=== PATIENT | male | born 1950 | race Caucasian/White ===

== ENCOUNTER 2021-04-17 15:56 | Inpatient (IN) ==
[2021-04-17] MEDS ORDERED: SODIUM CHLORIDE 0.9% 500 ML IV STA (20:11)
[2021-04-17 21:01] LABS: Basophils % 0.2 % (0.0-0.8); Hematocrit 49.9 VOL% (42.0-52.0); Hemoglobin 16.7 GM/DL (14.0-18.0); Immature Granulocytes % 0.7 %; Immature Granulocytes Absolute 0.07 #; Lymphocytes # 1.4 10*3/uL (1.4-4.0); Mean Corpuscular HGB Conc 33.5 GM/DL (32-36); Mean Corpuscular Volume 87.9 FL (87-102); Mean Platelet Volume 12.5 FL (9.6-12.0); Monocytes % 6.8 % (1.7-12.7); Neutrophils % 78.3 % (38.7-73.9); Platelet Count 171 T/CUMM (130-400); Red Blood Count 5.68 MC/CUMM (3.8-5.5); Red Cell Distribution Width 13.2 % (9.3-17.3); White Blood Count 9.8 T/CUMM (4-12)
[2021-04-17 21:14] LABS: INR 1.1; PT Patient Result 11.9 SECS (10.5-12.0)
[2021-04-17 21:21] LABS: Albumin 4.1 G/DL (3.4-5.0); Calcium 9.2 MG/DL (8.5-10.1); Osmolality,Calculated 290.4 MOS/KG (273-304); Potassium 3.9 MMOL/L (3.5-5.1); Total Protein 8.2 G/DL (6.4-8.2)
[2021-04-17] MEDS ORDERED: BICILLIN LA 1,200,000 UNIT/2 ML SYRINGE IM STA (21:22)
[2021-04-17] MEDS ORDERED: cefTRIAXone 1,000 MG in SODIUM CHLORIDE 0.9% 100 ML IV STA (21:24)
[2021-04-17 23:10] LABS: Bilirubin,Urine Negative (Negative); Blood, Urine Negative (Negative); Glucose,Urine (UA) 50 mg/dL (Negative); Hyaline Casts,Urine 3 /LPF (0-3); Ketones,Urine 5 mg/dL (Negative); Mucus,Urine Occasional /LPF (Occasional); Nitrite,Urine Negative (Negative); Protein,Urine 100 MG/DL; Urine Appearance CLEAR (Clear); Urine Color Yellow (Yellow); Urine Specific Gravity 1.018 (1.001-1.035); Urine Urobilinogen < 2.0 EU/DL (0.2-1.0)
[2021-04-17] MEDS ORDERED: ONDANSETRON 4 MG/2 ML VIAL IV PRN (23:11)
[2021-04-17] MEDS ORDERED: DEXTROSE 50% 25 GM/50 ML SYRINGE IV PRN (23:11)
[2021-04-17] MEDS ORDERED: GLUCAGON 1 MG VIAL IM PRN (23:11)
[2021-04-17] MEDS ORDERED: DEXTROSE 50% 25 GM/50 ML VIAL IV PRN (23:11)
[2021-04-17 23:20] LABS: Barbiturates Screen,Urine Negative (Negative); Benzodiazepines Screen,Urine Negative (Negative); Cannabinoid Screen,Urine Negative (Negative); Opiate Screen,Urine Positive (Negative); Phencyclidine Screen,Urine Negative (Negative)
[2021-04-18 00:12] LABS: Ferritin 4933.4 ng/mL (26-388)
[2021-04-18 08:49] LABS: Basophils % 0.2 % (0.0-0.8); Hematocrit 49.2 VOL% (42.0-52.0); Hemoglobin 16.6 GM/DL (14.0-18.0); Immature Granulocytes % 0.7 %; Immature Granulocytes Absolute 0.07 #; Lymphocytes # 1.9 10*3/uL (1.4-4.0); Lymphocytes % 19.7 % (21.2-54.2); Mean Corpuscular HGB Conc 33.7 GM/DL (32-36); Mean Corpuscular Volume 86.9 FL (87-102); Mean Platelet Volume 11.8 FL (9.6-12.0); Monocytes % 7.3 % (1.7-12.7); Neutrophils % 72.1 % (38.7-73.9); Platelet Count 187 T/CUMM (130-400); Red Blood Count 5.66 MC/CUMM (3.8-5.5); Red Cell Distribution Width 13.2 % (9.3-17.3); White Blood Count 9.7 T/CUMM (4-12)
[2021-04-18] MEDS ORDERED: DEXAMETHASONE 4 MG/1 ML VIAL IV SCH (09:00)
[2021-04-18] MEDS ORDERED: PANTOPRAZOLE 40 MG TABLET PO SCH (09:00)
[2021-04-18 09:07] LABS: Albumin 3.7 G/DL (3.4-5.0); Bilirubin,Total 0.9 MG/DL (0.20-1.00); Calcium 9.3 MG/DL (8.5-10.1); Osmolality,Calculated 285.2 MOS/KG (273-304); Total Protein 7.8 G/DL (6.4-8.2)
[2021-04-18] MEDS ORDERED: PANTOPRAZOLE 40 MG VIAL IV ONE (11:01)
[2021-04-18] MEDS: INSULIN REGULAR 100 UNIT/ML SUBCUT SCH ×3 (11:04→16:47)
[2021-04-18] MEDS: ENOXAPARIN 40 MG/0.4 ML SYRINGE SUBCUT SCH (11:04)
[2021-04-18] MEDS: ZINC GLUCONATE 50 MG TABLET PO SCH (11:05)
[2021-04-18] MEDS: AZITHROMYCIN INJ 500 MG in SODIUM CHLORIDE 0.9% 250 ML IV SCH (11:05)
[2021-04-18] MEDS: ASCORBIC ACID 500 MG TABLET PO SCH ×2 (11:05→23:14)
[2021-04-18] MEDS: IVERMECTIN 3 MG TABLET PO SCH (11:05)
[2021-04-18] MEDS: methylPREDNISolone SOD SUC 40 MG/1 ML VIAL IV SCH ×2 (11:05→18:08)
[2021-04-18] MEDS: CHOLECALCIFEROL 1,000 UNIT TABLET PO SCH (11:05)
[2021-04-18] MEDS: PANTOPRAZOLE 40 MG VIAL IV SCH (11:18)
[2021-04-18] MEDS: SODIUM CHLORIDE 0.9% 1,000 ML IV SCH ×2 (11:18→15:33)
[2021-04-18] MEDS ORDERED: LORazepam 2 MG/1 ML VIAL ONE (13:39)
[2021-04-18] MEDS: LORazepam 2 MG/1 ML VIAL IV PRN (13:50)
[2021-04-18] MEDS ORDERED: ALBUTEROL/IPRATROPIUM 3 ML NEB RESP TX PRN (17:23)
[2021-04-18] MEDS: POTASSIUM CHLORIDE RIDER 10 MEQ/100 ML PREMIX IV PRN (18:15)
[2021-04-18] MEDS ORDERED: ALBUTEROL/IPRATROPIUM 3 ML NEB RESP TX SCH (19:00)
[2021-04-18] MEDS: cefTRIAXone 1,000 MG in SODIUM CHLORIDE 0.9% 100 ML IV SCH (21:55)
[2021-04-19] MEDS ORDERED: ALBUTEROL INHALER 18 GM INH SCH (01:00)
[2021-04-19] MEDS: POTASSIUM CHLORIDE RIDER 10 MEQ/100 ML PREMIX IV PRN ×4 (01:00→03:00)
[2021-04-19] MEDS: methylPREDNISolone SOD SUC 40 MG/1 ML VIAL IV SCH ×3 (03:25→18:16)
[2021-04-19] MEDS: INSULIN REGULAR 100 UNIT/ML SUBCUT SCH ×5 (03:47→21:06)
[2021-04-19] MEDS: SODIUM CHLORIDE 0.9% 1,000 ML IV SCH ×3 (03:48→20:10)
[2021-04-19] MEDS: LORazepam 2 MG/1 ML VIAL IV PRN ×2 (04:45→12:29)
[2021-04-19 06:12] LABS: Basophils % 0.2 % (0.0-0.8); Hematocrit 50.1 VOL% (42.0-52.0); Hemoglobin 16.6 GM/DL (14.0-18.0); Immature Granulocytes % 0.6 %; Immature Granulocytes Absolute 0.05 #; Lymphocytes # 1.1 10*3/uL (1.4-4.0); Lymphocytes % 12.8 % (21.2-54.2); Mean Corpuscular HGB Conc 33.1 GM/DL (32-36); Mean Corpuscular Volume 89.5 FL (87-102); Mean Platelet Volume 11.8 FL (9.6-12.0); Monocytes % 5.8 % (1.7-12.7); Neutrophils % 80.6 % (38.7-73.9); Platelet Count 194 T/CUMM (130-400); Red Cell Distribution Width 13.2 % (9.3-17.3); White Blood Count 8.7 T/CUMM (4-12)
[2021-04-19 06:47] LABS: Albumin 3.2 G/DL (3.4-5.0); Bilirubin,Total 1.9 MG/DL (0.20-1.00); Calcium 9.1 MG/DL (8.5-10.1); Ferritin 5011.7 ng/mL (26-388); Potassium 3.5 MMOL/L (3.5-5.1); Total Protein 7.4 G/DL (6.4-8.2)
[2021-04-19] MEDS: ALBUTEROL INHALER 18 GM INH SCH ×3 (08:24→21:06)
[2021-04-19] MEDS: PANTOPRAZOLE 40 MG VIAL IV SCH (08:25)
[2021-04-19] MEDS: ENOXAPARIN 40 MG/0.4 ML SYRINGE SUBCUT SCH (08:25)
[2021-04-19] MEDS: IVERMECTIN 3 MG TABLET PO SCH (10:14)
[2021-04-19] MEDS: ASCORBIC ACID 500 MG TABLET PO SCH ×2 (10:14→21:05)
[2021-04-19] MEDS: ZINC GLUCONATE 50 MG TABLET PO SCH (10:14)
[2021-04-19] MEDS: CHOLECALCIFEROL 1,000 UNIT TABLET PO SCH (10:14)
[2021-04-19] MEDS: AZITHROMYCIN INJ 500 MG in SODIUM CHLORIDE 0.9% 250 ML IV SCH (10:30)
[2021-04-19] MEDS ORDERED: AZITHROMYCIN INJ 500 MG in SODIUM CHLORIDE 0.9% 250 ML IV SCH (10:30)
[2021-04-19] MEDS: cefTRIAXone 1,000 MG in SODIUM CHLORIDE 0.9% 100 ML IV SCH (21:05)
[2021-04-19] MEDS ORDERED: METOPROLOL TARTRATE 5 MG/5 ML VIAL IV ONE (21:31)
[2021-04-19] MEDS: METOPROLOL SUCCINATE XL 50 MG TABLET PO SCH (23:23)
[2021-04-20] MEDS: ALBUTEROL INHALER 18 GM INH SCH ×3 (12:52→21:03)
[2021-04-20] MEDS: methylPREDNISolone SOD SUC 40 MG/1 ML VIAL IV SCH ×2 (12:52→19:00)
[2021-04-20] MEDS: INSULIN REGULAR 100 UNIT/ML SUBCUT SCH ×4 (12:52→21:02)
[2021-04-20] MEDS: PANTOPRAZOLE 40 MG VIAL IV SCH (12:53)
[2021-04-20] MEDS: ENOXAPARIN 40 MG/0.4 ML SYRINGE SUBCUT SCH (12:53)
[2021-04-20] MEDS: SODIUM CHLORIDE 0.9% 1,000 ML IV SCH ×2 (12:53→23:21)
[2021-04-20] MEDS: CHOLECALCIFEROL 1,000 UNIT TABLET PO SCH (12:54)
[2021-04-20] MEDS: METOPROLOL SUCCINATE XL 50 MG TABLET PO SCH (12:54)
[2021-04-20] MEDS: ZINC GLUCONATE 50 MG TABLET PO SCH (12:54)
[2021-04-20] MEDS: IVERMECTIN 3 MG TABLET PO SCH (12:54)
[2021-04-20] MEDS: ASCORBIC ACID 500 MG TABLET PO SCH ×2 (12:54→21:04)
[2021-04-20 13:29] LABS: Basophils % 0.1 % (0.0-0.8); Hematocrit 52.1 VOL% (42.0-52.0); Immature Granulocytes % 0.9 %; Immature Granulocytes Absolute 0.16 #; Lymphocytes % 5.6 % (21.2-54.2); Mean Corpuscular HGB Conc 32.6 GM/DL (32-36); Mean Corpuscular Volume 89.8 FL (87-102); Mean Platelet Volume 11.3 FL (9.6-12.0); Monocytes % 5.8 % (1.7-12.7); Neutrophils % 87.6 % (38.7-73.9); Platelet Count 258 T/CUMM (130-400); Red Cell Distribution Width 13.4 % (9.3-17.3); White Blood Count 17.2 T/CUMM (4-12)
[2021-04-20 15:04] LABS: Ferritin 4259.9 ng/mL (26-388)
[2021-04-20 15:15] LABS: Calcium 9.1 MG/DL (8.5-10.1)
[2021-04-20 15:16] LABS: Albumin 3.2 G/DL (3.4-5.0); Bilirubin,Total 1.87 MG/DL (0.20-1.00); Potassium 3.5 MMOL/L (3.5-5.1); Total Protein 7.4 G/DL (6.4-8.2)
[2021-04-20] MEDS: DIPHENOXYLATE/ATROPINE 2.5-0.025 MG TABLET PO SCH ×2 (16:29→23:22)
[2021-04-20] MEDS: CARBIDOPA/LEVODOPA 10-100 MG TABLET PO SCH ×2 (16:29→21:03)
[2021-04-20] MEDS: DILTIAZEM INJ 100 MG in SODIUM CHLORIDE 0.9% 100 ML IV SCH (19:00)
[2021-04-20] MEDS: LORazepam 2 MG/1 ML VIAL IV PRN (21:01)
[2021-04-20] MEDS: cefTRIAXone 1,000 MG in SODIUM CHLORIDE 0.9% 100 ML IV SCH (21:02)
[2021-04-20] MEDS: levETIRAcetam 500 MG TABLET PO SCH (21:03)
[2021-04-20] MEDS: PARoxetine 20 MG TABLET PO SCH (21:03)
[2021-04-20] MEDS: QUEtiapine 100 MG TABLET PO SCH (21:03)
[2021-04-20] MEDS: TIMOLOL 0.5% OPH SOLN 5 ML BOTTLE BOTH EYES SCH (21:04)
[2021-04-21] MEDS: ALBUTEROL INHALER 18 GM INH SCH ×4 (00:51→20:34)
[2021-04-21] MEDS: methylPREDNISolone SOD SUC 40 MG/1 ML VIAL IV SCH ×3 (01:22→17:17)
[2021-04-21 06:11] LABS: Hematocrit 49.7 VOL% (42.0-52.0); Immature Granulocytes % 0.7 %; Immature Granulocytes Absolute 0.06 #; Lymphocytes # 0.6 10*3/uL (1.4-4.0); Lymphocytes % 7.4 % (21.2-54.2); Mean Corpuscular HGB Conc 32.2 GM/DL (32-36); Mean Corpuscular Volume 91.5 FL (87-102); Mean Platelet Volume 11.7 FL (9.6-12.0); Neutrophils % 85.9 % (38.7-73.9); Platelet Count 180 T/CUMM (130-400); Red Blood Count 5.43 MC/CUMM (3.8-5.5); Red Cell Distribution Width 13.4 % (9.3-17.3); White Blood Count 8.1 T/CUMM (4-12)
[2021-04-21 06:45] LABS: Albumin 2.7 G/DL (3.4-5.0); Calcium 8.5 MG/DL (8.5-10.1); Osmolality,Calculated 294.3 MOS/KG (273-304); Potassium 3.6 MMOL/L (3.5-5.1); Total Protein 6.5 G/DL (6.4-8.2)
[2021-04-21] MEDS: ASPIRIN EC 81 MG TABLET PO SCH (09:44)
[2021-04-21] MEDS: ZINC GLUCONATE 50 MG TABLET PO SCH (09:44)
[2021-04-21] MEDS: allopurinoL 300 MG TABLET PO SCH (09:45)
[2021-04-21] MEDS: ASCORBIC ACID 500 MG TABLET PO SCH ×2 (09:47→20:31)
[2021-04-21] MEDS: DIPHENOXYLATE/ATROPINE 2.5-0.025 MG TABLET PO SCH ×4 (09:47→20:32)
[2021-04-21] MEDS: levETIRAcetam 500 MG TABLET PO SCH ×2 (09:47→20:31)
[2021-04-21] MEDS: CHOLECALCIFEROL 1,000 UNIT TABLET PO SCH (09:47)
[2021-04-21] MEDS: CARBIDOPA/LEVODOPA 10-100 MG TABLET PO SCH ×3 (09:47→20:32)
[2021-04-21] MEDS: METOPROLOL SUCCINATE XL 50 MG TABLET PO SCH (09:48)
[2021-04-21] MEDS: CETIRIZINE 10 MG TABLET PO SCH (09:48)
[2021-04-21] MEDS: PANTOPRAZOLE 40 MG VIAL IV SCH (09:49)
[2021-04-21] MEDS: ENOXAPARIN 40 MG/0.4 ML SYRINGE SUBCUT SCH (09:49)
[2021-04-21] MEDS: INSULIN REGULAR 100 UNIT/ML SUBCUT SCH ×4 (10:48→20:46)
[2021-04-21] MEDS: IVERMECTIN 3 MG TABLET PO SCH (10:48)
[2021-04-21] MEDS: TIMOLOL 0.5% OPH SOLN 5 ML BOTTLE BOTH EYES SCH ×2 (10:49→20:33)
[2021-04-21] MEDS: SODIUM CHLORIDE 0.9% 1,000 ML IV SCH (13:47)
[2021-04-21] MEDS: TRIAMCINOLONE 0.025% CREAM 15 GM TUBE TOP SCH ×2 (13:56→20:33)
[2021-04-21] MEDS: QUEtiapine 100 MG TABLET PO SCH (20:32)
[2021-04-21] MEDS: PARoxetine 20 MG TABLET PO SCH (20:32)
[2021-04-21] MEDS: DILTIAZEM INJ 100 MG in SODIUM CHLORIDE 0.9% 100 ML IV SCH (21:41)
[2021-04-21] MEDS: cefTRIAXone 1,000 MG in SODIUM CHLORIDE 0.9% 100 ML IV SCH (22:36)
[2021-04-22] MEDS: ALBUTEROL INHALER 18 GM INH SCH ×4 (00:35→18:05)
[2021-04-22] MEDS: methylPREDNISolone SOD SUC 40 MG/1 ML VIAL IV SCH ×3 (01:56→17:43)
[2021-04-22] MEDS: SODIUM CHLORIDE 0.9% 1,000 ML IV SCH ×2 (04:45→11:26)
[2021-04-22 04:50] LABS: Basophils % 0.2 % (0.0-0.8); Hematocrit 51.7 VOL% (42.0-52.0); Hemoglobin 16.3 GM/DL (14.0-18.0); Immature Granulocytes % 0.9 %; Immature Granulocytes Absolute 0.11 #; Lymphocytes # 0.7 10*3/uL (1.4-4.0); Lymphocytes % 5.4 % (21.2-54.2); Mean Corpuscular HGB Conc 31.5 GM/DL (32-36); Mean Platelet Volume 11.4 FL (9.6-12.0); Monocytes % 5.1 % (1.7-12.7); Neutrophils % 88.4 % (38.7-73.9); Platelet Count 180 T/CUMM (130-400); Red Blood Count 5.62 MC/CUMM (3.8-5.5); Red Cell Distribution Width 13.2 % (9.3-17.3); White Blood Count 12.2 T/CUMM (4-12)
[2021-04-22 05:27] LABS: Albumin 2.7 G/DL (3.4-5.0); Bilirubin,Total 1.6 MG/DL (0.20-1.00); Calcium 8.9 MG/DL (8.5-10.1); Ferritin 2611.5 ng/mL (26-388); Osmolality,Calculated 299.1 MOS/KG (273-304); Potassium 3.8 MMOL/L (3.5-5.1); Total Protein 6.8 G/DL (6.4-8.2)
[2021-04-22] MEDS: PANTOPRAZOLE 40 MG VIAL IV SCH (09:41)
[2021-04-22] MEDS: ASPIRIN EC 81 MG TABLET PO SCH (09:41)
[2021-04-22] MEDS: ENOXAPARIN 40 MG/0.4 ML SYRINGE SUBCUT SCH (09:41)
[2021-04-22] MEDS: levETIRAcetam 500 MG TABLET PO SCH ×2 (09:41→20:49)
[2021-04-22] MEDS: CETIRIZINE 10 MG TABLET PO SCH (09:41)
[2021-04-22] MEDS: ASCORBIC ACID 500 MG TABLET PO SCH ×2 (09:42→20:47)
[2021-04-22] MEDS: DIPHENOXYLATE/ATROPINE 2.5-0.025 MG TABLET PO SCH ×3 (09:42→20:46)
[2021-04-22] MEDS: CARBIDOPA/LEVODOPA 10-100 MG TABLET PO SCH ×3 (09:42→20:49)
[2021-04-22] MEDS: METOPROLOL SUCCINATE XL 50 MG TABLET PO SCH (09:42)
[2021-04-22] MEDS: ZINC GLUCONATE 50 MG TABLET PO SCH (09:42)
[2021-04-22] MEDS: CHOLECALCIFEROL 1,000 UNIT TABLET PO SCH (09:42)
[2021-04-22] MEDS: allopurinoL 300 MG TABLET PO SCH (09:42)
[2021-04-22] MEDS: TRIAMCINOLONE 0.025% CREAM 15 GM TUBE TOP SCH ×2 (09:44→23:19)
[2021-04-22] MEDS: IVERMECTIN 3 MG TABLET PO SCH (09:44)
[2021-04-22] MEDS: TIMOLOL 0.5% OPH SOLN 5 ML BOTTLE BOTH EYES SCH ×2 (09:44→23:19)
[2021-04-22] MEDS: INSULIN REGULAR 100 UNIT/ML SUBCUT SCH ×5 (10:21→23:18)
[2021-04-22] MEDS ORDERED: HALOPERIDOL 5 MG/ML AMP IM ONE (10:31)
[2021-04-22] MEDS ORDERED: INSULIN GLARGINE 100 UNIT/ML SUBCUT ONE (12:00)
[2021-04-22] MEDS ORDERED: HALOPERIDOL 5 MG/ML AMP IM PRN (14:51)
[2021-04-22] MEDS: DILTIAZEM INJ 100 MG in SODIUM CHLORIDE 0.9% 100 ML IV SCH ×2 (17:45→18:02)
[2021-04-22] MEDS: QUEtiapine 100 MG TABLET PO SCH (20:50)
[2021-04-22] MEDS: PARoxetine 20 MG TABLET PO SCH (20:50)
[2021-04-22] MEDS: cefTRIAXone 1,000 MG in SODIUM CHLORIDE 0.9% 100 ML IV SCH (22:00)
[2021-04-23] MEDS: ALBUTEROL INHALER 18 GM INH SCH ×4 (02:00→20:05)
[2021-04-23] MEDS: methylPREDNISolone SOD SUC 40 MG/1 ML VIAL IV SCH ×3 (02:40→17:15)
[2021-04-23 06:08] LABS: Basophils % 0.1 % (0.0-0.8); Hematocrit 48.5 VOL% (42.0-52.0); Hemoglobin 15.8 GM/DL (14.0-18.0); Immature Granulocytes % 1.3 %; Immature Granulocytes Absolute 0.18 #; Lymphocytes # 0.8 10*3/uL (1.4-4.0); Lymphocytes % 5.6 % (21.2-54.2); Mean Corpuscular HGB Conc 32.6 GM/DL (32-36); Mean Corpuscular Volume 91.3 FL (87-102); Mean Platelet Volume 11.5 FL (9.6-12.0); Monocytes % 6.2 % (1.7-12.7); Neutrophils % 86.8 % (38.7-73.9); Platelet Count 227 T/CUMM (130-400); Red Blood Count 5.31 MC/CUMM (3.8-5.5); White Blood Count 13.5 T/CUMM (4-12)
[2021-04-23 06:46] LABS: Albumin 2.7 G/DL (3.4-5.0); Bilirubin,Total 1.7 MG/DL (0.20-1.00); Ferritin 2577.5 ng/mL (26-388); Osmolality,Calculated 290.4 MOS/KG (273-304); Potassium 3.6 MMOL/L (3.5-5.1); Total Protein 6.4 G/DL (6.4-8.2)
[2021-04-23] MEDS ORDERED: IVERMECTIN 3 MG TABLET PO ONE (09:00)
[2021-04-23] MEDS: ENOXAPARIN 40 MG/0.4 ML SYRINGE SUBCUT SCH (10:50)
[2021-04-23] MEDS: PANTOPRAZOLE 40 MG VIAL IV SCH (10:51)
[2021-04-23] MEDS: METOPROLOL SUCCINATE XL 50 MG TABLET PO SCH (10:52)
[2021-04-23] MEDS: levETIRAcetam 500 MG TABLET PO SCH ×2 (10:52→20:02)
[2021-04-23] MEDS: ASCORBIC ACID 500 MG TABLET PO SCH ×2 (10:52→20:01)
[2021-04-23] MEDS: hydrALAZINE 25 MG TABLET PO SCH ×2 (10:52→20:02)
[2021-04-23] MEDS: CETIRIZINE 10 MG TABLET PO SCH (10:53)
[2021-04-23] MEDS: CHOLECALCIFEROL 1,000 UNIT TABLET PO SCH (10:53)
[2021-04-23] MEDS ORDERED: NICOTINE 21 MG/24 HR PATCH TRANSDERM PRN (10:53)
[2021-04-23] MEDS: ASPIRIN EC 81 MG TABLET PO SCH (10:53)
[2021-04-23] MEDS: DIPHENOXYLATE/ATROPINE 2.5-0.025 MG TABLET PO SCH ×3 (10:53→20:03)
[2021-04-23] MEDS: allopurinoL 300 MG TABLET PO SCH (10:53)
[2021-04-23] MEDS: ZINC GLUCONATE 50 MG TABLET PO SCH (10:53)
[2021-04-23] MEDS: TRIAMCINOLONE 0.025% CREAM 15 GM TUBE TOP SCH ×2 (10:54→20:32)
[2021-04-23] MEDS: INSULIN REGULAR 100 UNIT/ML SUBCUT SCH ×4 (10:54→20:35)
[2021-04-23] MEDS: CARBIDOPA/LEVODOPA 10-100 MG TABLET PO SCH ×3 (10:54→20:01)
[2021-04-23] MEDS: TIMOLOL 0.5% OPH SOLN 5 ML BOTTLE BOTH EYES SCH ×2 (10:54→20:32)
[2021-04-23] MEDS: INSULIN GLARGINE 100 UNIT/ML SUBCUT SCH (11:58)
[2021-04-23] MEDS: QUEtiapine 25 MG TABLET PO SCH (13:40)
[2021-04-23] MEDS: SODIUM CHLORIDE 0.9% 1,000 ML IV SCH (18:25)
[2021-04-23] MEDS: MELATONIN 3 MG TABLET PO PRN (20:01)
[2021-04-23] MEDS: PARoxetine 20 MG TABLET PO SCH (20:02)
[2021-04-23] MEDS: QUEtiapine 100 MG TABLET PO SCH (20:02)
[2021-04-23] MEDS: DILTIAZEM INJ 100 MG in SODIUM CHLORIDE 0.9% 100 ML IV SCH (20:04)
[2021-04-23] MEDS: cefTRIAXone 1,000 MG in SODIUM CHLORIDE 0.9% 100 ML IV SCH (21:16)
[2021-04-24] MEDS: DILTIAZEM INJ 100 MG in SODIUM CHLORIDE 0.9% 100 ML IV SCH ×3 (01:00→23:35)
[2021-04-24] MEDS: ALBUTEROL INHALER 18 GM INH SCH ×4 (01:58→18:56)
[2021-04-24] MEDS: methylPREDNISolone SOD SUC 40 MG/1 ML VIAL IV SCH ×3 (02:18→17:14)
[2021-04-24 06:14] LABS: Basophils % 0.3 % (0.0-0.8); Hematocrit 47.5 VOL% (42.0-52.0); Hemoglobin 15.7 GM/DL (14.0-18.0); Immature Granulocytes % 1.7 %; Lymphocytes % 3.7 % (21.2-54.2); Mean Corpuscular HGB Conc 33.1 GM/DL (32-36); Mean Corpuscular Volume 89.1 FL (87-102); Mean Platelet Volume 11.8 FL (9.6-12.0); Monocytes % 6.2 % (1.7-12.7); Neutrophils % 88.1 % (38.7-73.9); Platelet Count 222 T/CUMM (130-400); Red Blood Count 5.33 MC/CUMM (3.8-5.5); Red Cell Distribution Width 12.9 % (9.3-17.3); White Blood Count 14.9 T/CUMM (4-12)
[2021-04-24 06:15] LABS: Immature Granulocytes Absolute 0.26 #; Lymphocytes # 0.6 10*3/uL (1.4-4.0)
[2021-04-24 06:40] LABS: Lymphocytes 1 % (20-55); Platelet Estimate Adequate; Segmented Neutrophils 93 % (50-85); Total Cells Counted 100
[2021-04-24 07:19] LABS: Albumin 2.6 G/DL (3.4-5.0); Bilirubin,Total 1.6 MG/DL (0.20-1.00); Calcium 8.6 MG/DL (8.5-10.1); Ferritin 3190.7 ng/mL (26-388); Osmolality,Calculated 292.5 MOS/KG (273-304); Potassium 4.1 MMOL/L (3.5-5.1)
[2021-04-24] MEDS: hydrALAZINE 25 MG TABLET PO SCH ×2 (08:09→20:30)
[2021-04-24] MEDS: TRIAMCINOLONE 0.025% CREAM 15 GM TUBE TOP SCH ×2 (08:09→20:31)
[2021-04-24] MEDS: INSULIN REGULAR 100 UNIT/ML SUBCUT SCH ×4 (08:09→20:31)
[2021-04-24] MEDS: ASPIRIN EC 81 MG TABLET PO SCH (08:09)
[2021-04-24] MEDS: INSULIN GLARGINE 100 UNIT/ML SUBCUT SCH (08:10)
[2021-04-24] MEDS: DIPHENOXYLATE/ATROPINE 2.5-0.025 MG TABLET PO SCH ×3 (08:10→20:31)
[2021-04-24] MEDS: PANTOPRAZOLE 40 MG VIAL IV SCH (08:10)
[2021-04-24] MEDS: ENOXAPARIN 40 MG/0.4 ML SYRINGE SUBCUT SCH (08:10)
[2021-04-24] MEDS: levETIRAcetam 500 MG TABLET PO SCH ×2 (08:10→20:30)
[2021-04-24] MEDS: allopurinoL 300 MG TABLET PO SCH (08:11)
[2021-04-24] MEDS: CARBIDOPA/LEVODOPA 10-100 MG TABLET PO SCH ×3 (08:11→20:31)
[2021-04-24] MEDS: CHOLECALCIFEROL 1,000 UNIT TABLET PO SCH (08:11)
[2021-04-24] MEDS: TIMOLOL 0.5% OPH SOLN 5 ML BOTTLE BOTH EYES SCH ×2 (08:11→20:31)
[2021-04-24] MEDS: QUEtiapine 25 MG TABLET PO SCH (08:11)
[2021-04-24] MEDS: METOPROLOL SUCCINATE XL 50 MG TABLET PO SCH (08:11)
[2021-04-24] MEDS: ASCORBIC ACID 500 MG TABLET PO SCH ×2 (08:11→20:30)
[2021-04-24] MEDS: ZINC GLUCONATE 50 MG TABLET PO SCH (08:11)
[2021-04-24] MEDS: CETIRIZINE 10 MG TABLET PO SCH (08:11)
[2021-04-24] MEDS: SODIUM CHLORIDE 0.9% 1,000 ML IV SCH (12:22)
[2021-04-24] MEDS: QUEtiapine 100 MG TABLET PO SCH (20:30)
[2021-04-24] MEDS: MELATONIN 3 MG TABLET PO PRN (20:30)
[2021-04-24] MEDS: PARoxetine 20 MG TABLET PO SCH (20:30)
[2021-04-24] MEDS: cefTRIAXone 1,000 MG in SODIUM CHLORIDE 0.9% 100 ML IV SCH (21:10)
[2021-04-25] MEDS: ALBUTEROL INHALER 18 GM INH SCH ×4 (01:17→18:42)
[2021-04-25] MEDS: methylPREDNISolone SOD SUC 40 MG/1 ML VIAL IV SCH ×2 (01:17→14:08)
[2021-04-25] MEDS: INSULIN GLARGINE 100 UNIT/ML SUBCUT SCH (09:10)
[2021-04-25] MEDS: PANTOPRAZOLE 40 MG VIAL IV SCH (09:10)
[2021-04-25] MEDS: ENOXAPARIN 40 MG/0.4 ML SYRINGE SUBCUT SCH (09:10)
[2021-04-25] MEDS: CARBIDOPA/LEVODOPA 10-100 MG TABLET PO SCH ×3 (09:11→21:22)
[2021-04-25] MEDS: INSULIN REGULAR 100 UNIT/ML SUBCUT SCH ×4 (09:11→21:41)
[2021-04-25] MEDS: QUEtiapine 25 MG TABLET PO SCH (09:12)
[2021-04-25] MEDS: CHOLECALCIFEROL 1,000 UNIT TABLET PO SCH (09:13)
[2021-04-25] MEDS: ASCORBIC ACID 500 MG TABLET PO SCH ×2 (09:13→21:20)
[2021-04-25] MEDS: METOPROLOL SUCCINATE XL 50 MG TABLET PO SCH (09:13)
[2021-04-25] MEDS: allopurinoL 300 MG TABLET PO SCH (09:13)
[2021-04-25] MEDS: CETIRIZINE 10 MG TABLET PO SCH (09:14)
[2021-04-25] MEDS: TRIAMCINOLONE 0.025% CREAM 15 GM TUBE TOP SCH ×2 (09:14→21:23)
[2021-04-25] MEDS: hydrALAZINE 25 MG TABLET PO SCH ×2 (09:14→21:20)
[2021-04-25] MEDS: levETIRAcetam 500 MG TABLET PO SCH ×2 (09:14→21:41)
[2021-04-25] MEDS: ASPIRIN EC 81 MG TABLET PO SCH (09:14)
[2021-04-25] MEDS: DIPHENOXYLATE/ATROPINE 2.5-0.025 MG TABLET PO SCH ×3 (09:15→21:22)
[2021-04-25] MEDS: TIMOLOL 0.5% OPH SOLN 5 ML BOTTLE BOTH EYES SCH ×2 (09:15→21:54)
[2021-04-25] MEDS: ZINC GLUCONATE 50 MG TABLET PO SCH (09:18)
[2021-04-25] MEDS ORDERED: INSULIN GLARGINE 100 UNIT/ML SUBCUT SCH (21:00)
[2021-04-25] MEDS: MELATONIN 3 MG TABLET PO PRN (21:20)
[2021-04-25] MEDS: QUEtiapine 100 MG TABLET PO SCH (21:21)
[2021-04-25] MEDS: PARoxetine 20 MG TABLET PO SCH (21:22)
[2021-04-25] MEDS: cefTRIAXone 1,000 MG in SODIUM CHLORIDE 0.9% 100 ML IV SCH (21:45)
[2021-04-26] MEDS: ALBUTEROL INHALER 18 GM INH SCH ×4 (01:45→19:34)
[2021-04-26] MEDS: methylPREDNISolone SOD SUC 40 MG/1 ML VIAL IV SCH (01:46)
[2021-04-26] MEDS: DILTIAZEM INJ 100 MG in SODIUM CHLORIDE 0.9% 100 ML IV SCH (06:53)
[2021-04-26] MEDS: ENOXAPARIN 40 MG/0.4 ML SYRINGE SUBCUT SCH (09:21)
[2021-04-26] MEDS: INSULIN GLARGINE 100 UNIT/ML SUBCUT SCH ×2 (09:22→22:15)
[2021-04-26] MEDS: INSULIN REGULAR 100 UNIT/ML SUBCUT SCH ×4 (09:22→22:14)
[2021-04-26] MEDS: PANTOPRAZOLE 40 MG VIAL IV SCH (09:23)
[2021-04-26] MEDS: DIGOXIN 0.5 MG/2 ML AMP IV SCH (09:24)
[2021-04-26] MEDS: hydrALAZINE 25 MG TABLET PO SCH ×2 (09:24→22:15)
[2021-04-26] MEDS: DIPHENOXYLATE/ATROPINE 2.5-0.025 MG TABLET PO SCH ×3 (09:25→22:15)
[2021-04-26] MEDS: CARBIDOPA/LEVODOPA 10-100 MG TABLET PO SCH ×3 (09:25→22:15)
[2021-04-26] MEDS: ASPIRIN EC 81 MG TABLET PO SCH (09:25)
[2021-04-26] MEDS: ZINC GLUCONATE 50 MG TABLET PO SCH (09:25)
[2021-04-26] MEDS: ASCORBIC ACID 500 MG TABLET PO SCH ×2 (09:25→22:15)
[2021-04-26] MEDS: CHOLECALCIFEROL 1,000 UNIT TABLET PO SCH (09:25)
[2021-04-26] MEDS: QUEtiapine 25 MG TABLET PO SCH (09:25)
[2021-04-26] MEDS: levETIRAcetam 500 MG TABLET PO SCH ×2 (09:26→22:14)
[2021-04-26] MEDS: METOPROLOL SUCCINATE XL 50 MG TABLET PO SCH (09:26)
[2021-04-26] MEDS: allopurinoL 300 MG TABLET PO SCH (09:26)
[2021-04-26] MEDS: CETIRIZINE 10 MG TABLET PO SCH (09:27)
[2021-04-26] MEDS: TRIAMCINOLONE 0.025% CREAM 15 GM TUBE TOP SCH ×2 (09:27→22:14)
[2021-04-26] MEDS: TIMOLOL 0.5% OPH SOLN 5 ML BOTTLE BOTH EYES SCH ×2 (09:27→22:14)
[2021-04-26] MEDS: QUEtiapine 100 MG TABLET PO SCH (22:13)
[2021-04-26] MEDS: PARoxetine 20 MG TABLET PO SCH (22:14)
[2021-04-27] MEDS: ALBUTEROL INHALER 18 GM INH SCH ×4 (01:18→18:18)
[2021-04-27 05:44] LABS: Basophils # 0.1 10*3/uL (0.0-0.2); Basophils % 0.6 % (0.0-0.8); Eosinophils % 0.2 % (0.00-10.9); Hematocrit 51.5 VOL% (42.0-52.0); Hemoglobin 16.6 GM/DL (14.0-18.0); Immature Granulocytes % 2.4 %; Lymphocytes # 1.6 10*3/uL (1.4-4.0); Lymphocytes % 12.6 % (21.2-54.2); Mean Corpuscular HGB Conc 32.2 GM/DL (32-36); Mean Corpuscular Volume 91.3 FL (87-102); Mean Platelet Volume 12.3 FL (9.6-12.0); Monocytes % 7.9 % (1.7-12.7); Neutrophils % 76.3 % (38.7-73.9); Platelet Count 246 T/CUMM (130-400); Red Blood Count 5.64 MC/CUMM (3.8-5.5); Red Cell Distribution Width 12.9 % (9.3-17.3); White Blood Count 12.4 T/CUMM (4-12)
[2021-04-27 06:04] LABS: Calcium 8.7 MG/DL (8.5-10.1); Osmolality,Calculated 291.7 MOS/KG (273-304); Potassium 4.2 MMOL/L (3.5-5.1)
[2021-04-27] MEDS: ZINC GLUCONATE 50 MG TABLET PO SCH (09:16)
[2021-04-27] MEDS: CARBIDOPA/LEVODOPA 10-100 MG TABLET PO SCH ×3 (09:16→20:41)
[2021-04-27] MEDS: ASPIRIN EC 81 MG TABLET PO SCH (09:16)
[2021-04-27] MEDS: hydrALAZINE 25 MG TABLET PO SCH ×2 (09:16→20:42)
[2021-04-27] MEDS: CETIRIZINE 10 MG TABLET PO SCH (09:16)
[2021-04-27] MEDS: ASCORBIC ACID 500 MG TABLET PO SCH ×2 (09:16→20:42)
[2021-04-27] MEDS: CHOLECALCIFEROL 1,000 UNIT TABLET PO SCH (09:16)
[2021-04-27] MEDS: METOPROLOL SUCCINATE XL 50 MG TABLET PO SCH (09:16)
[2021-04-27] MEDS: QUEtiapine 25 MG TABLET PO SCH (09:17)
[2021-04-27] MEDS: allopurinoL 300 MG TABLET PO SCH (09:17)
[2021-04-27] MEDS: DIPHENOXYLATE/ATROPINE 2.5-0.025 MG TABLET PO SCH ×3 (09:17→20:42)
[2021-04-27] MEDS: INSULIN REGULAR 100 UNIT/ML SUBCUT SCH ×4 (09:17→20:42)
[2021-04-27] MEDS: ENOXAPARIN 40 MG/0.4 ML SYRINGE SUBCUT SCH (09:18)
[2021-04-27] MEDS: PANTOPRAZOLE 40 MG VIAL IV SCH (09:18)
[2021-04-27] MEDS: levETIRAcetam 500 MG TABLET PO SCH ×2 (09:21→20:41)
[2021-04-27] MEDS: TRIAMCINOLONE 0.025% CREAM 15 GM TUBE TOP SCH ×2 (09:21→20:43)
[2021-04-27] MEDS: TIMOLOL 0.5% OPH SOLN 5 ML BOTTLE BOTH EYES SCH ×2 (09:21→20:48)
[2021-04-27] MEDS: DIGOXIN 0.5 MG/2 ML AMP IV SCH (09:22)
[2021-04-27] MEDS: INSULIN GLARGINE 100 UNIT/ML SUBCUT SCH ×2 (09:22→20:43)
[2021-04-27] MEDS: DILTIAZEM INJ 100 MG in SODIUM CHLORIDE 0.9% 100 ML IV SCH (10:14)
[2021-04-27] MEDS: PARoxetine 20 MG TABLET PO SCH (20:42)
[2021-04-27] MEDS: QUEtiapine 100 MG TABLET PO SCH (20:42)
[2021-04-28] MEDS: ACETAMINOPHEN 325 MG TABLET PO PRN (01:52)
[2021-04-28] MEDS: ALBUTEROL INHALER 18 GM INH SCH ×4 (01:52→20:00)
[2021-04-28 06:07] LABS: Basophils # 0.1 10*3/uL (0.0-0.2); Basophils % 0.3 % (0.0-0.8); Eosinophils % 0.1 % (0.00-10.9); Hematocrit 50.3 VOL% (42.0-52.0); Hemoglobin 16.6 GM/DL (14.0-18.0); Lymphocytes # 1.5 10*3/uL (1.4-4.0); Lymphocytes % 7.4 % (21.2-54.2); Mean Corpuscular Volume 89.5 FL (87-102); Mean Platelet Volume 12.1 FL (9.6-12.0); Monocytes % 5.7 % (1.7-12.7); Neutrophils % 84.5 % (38.7-73.9); Platelet Count 250 T/CUMM (130-400); Red Blood Count 5.62 MC/CUMM (3.8-5.5); Red Cell Distribution Width 12.8 % (9.3-17.3); White Blood Count 20.4 T/CUMM (4-12)
[2021-04-28 06:36] LABS: Band Neutrophils 2 % (0-10); Lymphocytes 4 % (20-55); Platelet Estimate Adequate; Segmented Neutrophils 89 % (50-85); Total Cells Counted 100
[2021-04-28 06:41] LABS: Calcium 8.8 MG/DL (8.5-10.1); Osmolality,Calculated 280.8 MOS/KG (273-304); Potassium 3.8 MMOL/L (3.5-5.1)
[2021-04-28] MEDS: allopurinoL 300 MG TABLET PO SCH (09:53)
[2021-04-28] MEDS: INSULIN GLARGINE 100 UNIT/ML SUBCUT SCH ×2 (09:53→22:17)
[2021-04-28] MEDS: DIGOXIN 0.5 MG/2 ML AMP IV SCH (09:54)
[2021-04-28] MEDS: PANTOPRAZOLE 40 MG VIAL IV SCH (09:54)
[2021-04-28] MEDS: ENOXAPARIN 40 MG/0.4 ML SYRINGE SUBCUT SCH (09:54)
[2021-04-28] MEDS: ASPIRIN EC 81 MG TABLET PO SCH (09:54)
[2021-04-28] MEDS: CARBIDOPA/LEVODOPA 10-100 MG TABLET PO SCH ×3 (09:54→21:56)
[2021-04-28] MEDS: ZINC GLUCONATE 50 MG TABLET PO SCH (09:54)
[2021-04-28] MEDS: levETIRAcetam 500 MG TABLET PO SCH ×2 (09:55→21:58)
[2021-04-28] MEDS: QUEtiapine 25 MG TABLET PO SCH (09:55)
[2021-04-28] MEDS: CETIRIZINE 10 MG TABLET PO SCH (09:55)
[2021-04-28] MEDS: CHOLECALCIFEROL 1,000 UNIT TABLET PO SCH (09:55)
[2021-04-28] MEDS: ASCORBIC ACID 500 MG TABLET PO SCH ×2 (09:55→21:58)
[2021-04-28] MEDS: hydrALAZINE 25 MG TABLET PO SCH ×2 (09:55→21:58)
[2021-04-28] MEDS: METOPROLOL SUCCINATE XL 50 MG TABLET PO SCH (09:55)
[2021-04-28] MEDS: TRIAMCINOLONE 0.025% CREAM 15 GM TUBE TOP SCH ×2 (09:55→21:55)
[2021-04-28] MEDS: TIMOLOL 0.5% OPH SOLN 5 ML BOTTLE BOTH EYES SCH ×2 (09:56→22:17)
[2021-04-28] MEDS: INSULIN REGULAR 100 UNIT/ML SUBCUT SCH ×4 (09:56→20:13)
[2021-04-28] MEDS: QUEtiapine 100 MG TABLET PO SCH (21:57)
[2021-04-28] MEDS: PARoxetine 20 MG TABLET PO SCH (21:58)
[2021-04-29] MEDS: ALBUTEROL INHALER 18 GM INH SCH ×3 (01:05→20:45)
[2021-04-29 05:57] LABS: Calcium 8.7 MG/DL (8.5-10.1); Potassium 4.1 MMOL/L (3.5-5.1)
[2021-04-29 05:59] LABS: Basophils # 0.1 10*3/uL (0.0-0.2); Basophils % 0.3 % (0.0-0.8); Eosinophils # 0.1 10*3/uL (0.0-0.87); Eosinophils % 0.2 % (0.00-10.9); Hematocrit 47.8 VOL% (42.0-52.0); Immature Granulocytes % 2.1 %; Immature Granulocytes Absolute 0.43 #; Lymphocytes # 1.4 10*3/uL (1.4-4.0); Mean Corpuscular HGB Conc 33.5 GM/DL (32-36); Mean Platelet Volume 11.9 FL (9.6-12.0); Monocytes % 5.1 % (1.7-12.7); Neutrophils % 85.3 % (38.7-73.9); Platelet Count 230 T/CUMM (130-400); Red Blood Count 5.37 MC/CUMM (3.8-5.5); White Blood Count 20.5 T/CUMM (4-12)
[2021-04-29 06:23] LABS: Lymphocytes 5 % (20-55); Platelet Estimate Adequate; Segmented Neutrophils 93 % (50-85); Total Cells Counted 100
[2021-04-29 06:24] LABS: Hypochromasia Slight; Microcytosis Slight
[2021-04-29] MEDS: ASPIRIN EC 81 MG TABLET PO SCH (10:03)
[2021-04-29] MEDS: CHOLECALCIFEROL 1,000 UNIT TABLET PO SCH (10:03)
[2021-04-29] MEDS: PANTOPRAZOLE 40 MG VIAL IV SCH (10:03)
[2021-04-29] MEDS: ENOXAPARIN 40 MG/0.4 ML SYRINGE SUBCUT SCH (10:03)
[2021-04-29] MEDS: hydrALAZINE 25 MG TABLET PO SCH ×2 (10:03→20:43)
[2021-04-29] MEDS: DIGOXIN 0.5 MG/2 ML AMP IV SCH (10:04)
[2021-04-29] MEDS: CETIRIZINE 10 MG TABLET PO SCH (10:04)
[2021-04-29] MEDS: CARBIDOPA/LEVODOPA 10-100 MG TABLET PO SCH ×3 (10:04→20:42)
[2021-04-29] MEDS: METOPROLOL SUCCINATE XL 50 MG TABLET PO SCH (10:04)
[2021-04-29] MEDS: levETIRAcetam 500 MG TABLET PO SCH ×2 (10:04→20:43)
[2021-04-29] MEDS: QUEtiapine 25 MG TABLET PO SCH (10:05)
[2021-04-29] MEDS: TRIAMCINOLONE 0.025% CREAM 15 GM TUBE TOP SCH ×2 (10:05→20:49)
[2021-04-29] MEDS: TIMOLOL 0.5% OPH SOLN 5 ML BOTTLE BOTH EYES SCH ×2 (10:06→20:46)
[2021-04-29] MEDS: INSULIN REGULAR 100 UNIT/ML SUBCUT SCH ×4 (10:06→20:50)
[2021-04-29] MEDS: INSULIN GLARGINE 100 UNIT/ML SUBCUT SCH ×2 (11:11→20:50)
[2021-04-29] MEDS: ZINC GLUCONATE 50 MG TABLET PO SCH (14:23)
[2021-04-29] MEDS: ASCORBIC ACID 500 MG TABLET PO SCH ×2 (14:23→20:42)
[2021-04-29] MEDS: allopurinoL 300 MG TABLET PO SCH (14:23)
[2021-04-29] MEDS ORDERED: DEXTROSE 50% 25 GM/50 ML SYRINGE IV PRN (14:33)
[2021-04-29] MEDS: QUEtiapine 100 MG TABLET PO SCH (20:42)
[2021-04-29] MEDS: PARoxetine 20 MG TABLET PO SCH (20:43)
[2021-04-30 06:01] LABS: Basophils # 0.1 10*3/uL (0.0-0.2); Basophils % 0.4 % (0.0-0.8); Eosinophils # 0.1 10*3/uL (0.0-0.87); Eosinophils % 0.4 % (0.00-10.9); Hemoglobin 14.8 GM/DL (14.0-18.0); Immature Granulocytes % 2.6 %; Immature Granulocytes Absolute 0.31 #; Lymphocytes # 1.6 10*3/uL (1.4-4.0); Lymphocytes % 13.2 % (21.2-54.2); Mean Corpuscular HGB Conc 33.6 GM/DL (32-36); Mean Platelet Volume 12.2 FL (9.6-12.0); Monocytes % 6.3 % (1.7-12.7); Neutrophils % 77.1 % (38.7-73.9); Platelet Count 225 T/CUMM (130-400); Red Cell Distribution Width 12.9 % (9.3-17.3); White Blood Count 12.1 T/CUMM (4-12)
[2021-04-30 06:14] LABS: Calcium 8.7 MG/DL (8.5-10.1); Osmolality,Calculated 278.7 MOS/KG (273-304); Potassium 3.7 MMOL/L (3.5-5.1)
[2021-04-30] MEDS: ALBUTEROL INHALER 18 GM INH SCH ×4 (07:27→22:11)
[2021-04-30] MEDS: INSULIN REGULAR 100 UNIT/ML SUBCUT SCH ×4 (08:17→22:11)
[2021-04-30] MEDS: TRIAMCINOLONE 0.025% CREAM 15 GM TUBE TOP SCH ×2 (09:10→22:09)
[2021-04-30] MEDS: ENOXAPARIN 40 MG/0.4 ML SYRINGE SUBCUT SCH (09:10)
[2021-04-30] MEDS: QUEtiapine 25 MG TABLET PO SCH (09:10)
[2021-04-30] MEDS: INSULIN GLARGINE 100 UNIT/ML SUBCUT SCH ×2 (09:10→22:04)
[2021-04-30] MEDS: TIMOLOL 0.5% OPH SOLN 5 ML BOTTLE BOTH EYES SCH ×2 (09:10→22:11)
[2021-04-30] MEDS: ASPIRIN EC 81 MG TABLET PO SCH (09:10)
[2021-04-30] MEDS: ASCORBIC ACID 500 MG TABLET PO SCH ×2 (09:10→22:03)
[2021-04-30] MEDS: hydrALAZINE 25 MG TABLET PO SCH ×2 (09:10→22:04)
[2021-04-30] MEDS: DIGOXIN 0.5 MG/2 ML AMP IV SCH (09:10)
[2021-04-30] MEDS: levETIRAcetam 500 MG TABLET PO SCH ×2 (09:10→22:04)
[2021-04-30] MEDS: METOPROLOL SUCCINATE XL 50 MG TABLET PO SCH (09:10)
[2021-04-30] MEDS: CARBIDOPA/LEVODOPA 10-100 MG TABLET PO SCH ×3 (09:10→22:03)
[2021-04-30] MEDS: PANTOPRAZOLE 40 MG VIAL IV SCH (09:11)
[2021-04-30] MEDS: ZINC GLUCONATE 50 MG TABLET PO SCH (09:11)
[2021-04-30] MEDS: CHOLECALCIFEROL 1,000 UNIT TABLET PO SCH (09:11)
[2021-04-30] MEDS: allopurinoL 300 MG TABLET PO SCH (09:11)
[2021-04-30] MEDS: CETIRIZINE 10 MG TABLET PO SCH (09:11)
[2021-04-30] MEDS: ACETAMINOPHEN 325 MG TABLET PO PRN (18:21)
[2021-04-30] MEDS: QUEtiapine 100 MG TABLET PO SCH (22:03)
[2021-04-30] MEDS: PARoxetine 20 MG TABLET PO SCH (22:04)
[2021-05-01] MEDS: ALBUTEROL INHALER 18 GM INH SCH ×4 (01:51→18:43)
[2021-05-01 08:54] LABS: Basophils # 0.1 10*3/uL (0.0-0.2); Basophils % 0.6 % (0.0-0.8); Eosinophils # 0.1 10*3/uL (0.0-0.87); Eosinophils % 0.8 % (0.00-10.9); Hematocrit 44.7 VOL% (42.0-52.0); Hemoglobin 14.8 GM/DL (14.0-18.0); Immature Granulocytes % 2.6 %; Lymphocytes # 1.6 10*3/uL (1.4-4.0); Lymphocytes % 20.3 % (21.2-54.2); Mean Corpuscular HGB Conc 33.1 GM/DL (32-36); Mean Corpuscular Volume 89.8 FL (87-102); Mean Platelet Volume 11.5 FL (9.6-12.0); Monocytes % 8.5 % (1.7-12.7); Neutrophils % 67.2 % (38.7-73.9); Platelet Count 228 T/CUMM (130-400); Red Blood Count 4.98 MC/CUMM (3.8-5.5); Red Cell Distribution Width 13.2 % (9.3-17.3); White Blood Count 7.8 T/CUMM (4-12)
[2021-05-01] MEDS: levETIRAcetam 500 MG TABLET PO SCH ×2 (09:05→21:16)
[2021-05-01] MEDS: hydrALAZINE 25 MG TABLET PO SCH ×2 (09:05→21:16)
[2021-05-01] MEDS: ASPIRIN EC 81 MG TABLET PO SCH (09:05)
[2021-05-01] MEDS: TRIAMCINOLONE 0.025% CREAM 15 GM TUBE TOP SCH ×2 (09:05→21:16)
[2021-05-01] MEDS: INSULIN REGULAR 100 UNIT/ML SUBCUT SCH ×4 (09:05→21:16)
[2021-05-01] MEDS: PANTOPRAZOLE 40 MG VIAL IV SCH (09:06)
[2021-05-01] MEDS: TIMOLOL 0.5% OPH SOLN 5 ML BOTTLE BOTH EYES SCH ×2 (09:06→21:17)
[2021-05-01] MEDS: CARBIDOPA/LEVODOPA 10-100 MG TABLET PO SCH ×3 (09:06→21:16)
[2021-05-01] MEDS: DIGOXIN 0.5 MG/2 ML AMP IV SCH (09:06)
[2021-05-01] MEDS: QUEtiapine 25 MG TABLET PO SCH (09:06)
[2021-05-01] MEDS: INSULIN GLARGINE 100 UNIT/ML SUBCUT SCH ×2 (09:06→21:16)
[2021-05-01] MEDS: ENOXAPARIN 40 MG/0.4 ML SYRINGE SUBCUT SCH (09:06)
[2021-05-01] MEDS: ASCORBIC ACID 500 MG TABLET PO SCH ×2 (09:07→21:15)
[2021-05-01] MEDS: CETIRIZINE 10 MG TABLET PO SCH (09:07)
[2021-05-01] MEDS: CHOLECALCIFEROL 1,000 UNIT TABLET PO SCH (09:07)
[2021-05-01] MEDS: allopurinoL 300 MG TABLET PO SCH (09:07)
[2021-05-01] MEDS: ZINC GLUCONATE 50 MG TABLET PO SCH (09:07)
[2021-05-01] MEDS: METOPROLOL SUCCINATE XL 50 MG TABLET PO SCH (09:07)
[2021-05-01 10:50] LABS: Calcium 8.9 MG/DL (8.5-10.1); Osmolality,Calculated 277.8 MOS/KG (273-304); Potassium 3.6 MMOL/L (3.5-5.1)
[2021-05-01] MEDS: PARoxetine 20 MG TABLET PO SCH (21:15)
[2021-05-01] MEDS: QUEtiapine 100 MG TABLET PO SCH (21:16)
[2021-05-02] MEDS: ALBUTEROL INHALER 18 GM INH SCH ×2 (01:56→06:56)
[2021-05-02] MEDS: PANTOPRAZOLE 40 MG VIAL IV SCH (09:15)
[2021-05-02] MEDS: DIGOXIN 0.5 MG/2 ML AMP IV SCH (09:16)
[2021-05-02] MEDS: INSULIN REGULAR 100 UNIT/ML SUBCUT SCH ×2 (09:16→12:18)
[2021-05-02] MEDS: ENOXAPARIN 40 MG/0.4 ML SYRINGE SUBCUT SCH (09:16)
[2021-05-02] MEDS: INSULIN GLARGINE 100 UNIT/ML SUBCUT SCH (09:17)
[2021-05-02] MEDS: METOPROLOL SUCCINATE XL 50 MG TABLET PO SCH (09:18)
[2021-05-02] MEDS: ASPIRIN EC 81 MG TABLET PO SCH (09:18)
[2021-05-02] MEDS: levETIRAcetam 500 MG TABLET PO SCH (09:18)
[2021-05-02] MEDS: QUEtiapine 25 MG TABLET PO SCH (09:18)
[2021-05-02] MEDS: ZINC GLUCONATE 50 MG TABLET PO SCH (09:18)
[2021-05-02] MEDS: CARBIDOPA/LEVODOPA 10-100 MG TABLET PO SCH (09:18)
[2021-05-02] MEDS: hydrALAZINE 25 MG TABLET PO SCH (09:18)
[2021-05-02] MEDS: CETIRIZINE 10 MG TABLET PO SCH (09:18)
[2021-05-02] MEDS: allopurinoL 300 MG TABLET PO SCH (09:18)
[2021-05-02] MEDS: ASCORBIC ACID 500 MG TABLET PO SCH (09:18)
[2021-05-02] MEDS: CHOLECALCIFEROL 1,000 UNIT TABLET PO SCH (09:18)
[2021-05-02] MEDS: TRIAMCINOLONE 0.025% CREAM 15 GM TUBE TOP SCH (09:37)
[2021-05-02] MEDS: TIMOLOL 0.5% OPH SOLN 5 ML BOTTLE BOTH EYES SCH (09:37)
[2021-05-02 12:02] VITALS: BP 108/79
== END 2021-05-02 13:50 | disposition swing bed (61) | DRG 177 ==
LOC: N.ED 15:56 → SUATTDRO 23:11 → N.CVR 23:11 → N.CC 04-18 00:58 → N.TELEN 04-26 15:05
PROVIDERS: ADMIT Internal Medicine; ATTEND Internal Medicine